=== PATIENT | male | born 1995 | race Caucasian/White ===

== ENCOUNTER 2021-02-21 16:24 | Emergency (ER) | payer SELFPAY ==
[~2021-02-21] VITALS: Ht 177.8 cm; Wt 96.8 kg
[2021-02-21 17:28] LABS: BASO % 0.2 % (0.0-2.0); EOS % 0.3 % (0-4.0); GRAN # 7.1 (1.4-6.5); GRAN % 77.6 % (42.2-75.2); HEMOGLOBIN 14.1 g/dl (13.5-18.0); LYMPH # 1.4 (1.2-3.4); LYMPH % 14.9 % (20.0-51.0); MEAN CELL VOLUME 79 fl (80.0-100.0); MEAN CORPUSCULAR HEMOGLOBIN 29 pg (27.0-31.0); MEAN CORPUSCULAR HGB CONC 36 g/dl (33.0-37.0); MONO # 0.6 (0.1-0.6); MONO % 6.6 % (1.7-9.3); PLATELET COUNT 183 K/mm3 (130-400); RED BLOOD COUNT 4.92 M/mm3 (4.20-5.60); REDCELL DISTRIBUTION WIDTH-CV 13.2 % (11.5-14.5)
[2021-02-21 17:40] LABS: ALBUMIN 4.9 gm/dL (3.5-5.0); BILIRUBIN,TOTAL 0.6 mg/dL (0.0-1.0); CALCIUM 9.9 mg/dL (8.4-10.2); CREATININE, serum 1.1 (0.66-1.25); POTASSIUM 3.6 mmol/L (3.4-5.0)
[2021-02-21] MEDS ORDERED: ZOFRAN ODT4 MG PO (19:54)
[2021-02-21] MEDS ORDERED: NORCO 325 MG-51 TAB PO (19:54)
[2021-02-21 20:09] LABS: COLLECTION METHOD CLEAN CATCH
[2021-02-21 20:15] LABS: MUCOUS Present /lpf; PH 7 (5-8); SQUAMOUS EPITHELIAL None Seen /hpf; URINE APPEARANCE Clear; URINE BACTERIA None Seen /hpf; URINE BILIRUBIN Negative (NEGATIVE); URINE BLOOD Negative (NEGATIVE); URINE COLOR Straw; URINE GLUCOSE Negative (NEGATIVE); URINE KETONE Negative (NEGATIVE); URINE LEUKOCYTE ESTERASE Negative (NEGATIVE); URINE NITRATE Negative (NEGATIVE); URINE PROTEIN(semi-quant) Negative (NEGATIVE); URINE UROBILINOGEN Negative (NEGATIVE)
[2021-02-21 21:15] VITALS: BP 116/92; PULSE 88; TEMP 98.6
[2021-02-22 13:33] LABS: CD4 CD8 Ratio 1.62 (1.00-2.90); CD4 Helper T Cell 41.2 % (29.0-59.0); CD8 Suppressor T Cells 25.5 % (18.0-36.0)
== END 2021-02-21 21:15 | disposition home or self-care (01) ==
LOC: COL.ER 16:24
PROVIDERS: Physician Assistant
DX: N20.0 Calculus of kidney (principal); Z21 Asymptomatic human immunodeficiency virus [HIV] infection status
CPT/HCPCS: J1885; J2405; J2550; J3010; J7030; Q9967